=== PATIENT | female | born 1980 | race Caucasian/White ===

== ENCOUNTER 2018-05-08 10:02 | Day surgery (SDC) | payer BC ==
[2018-05-01 12:45] LABS: CLARITY,URINE SLIGHTLY CLOUDY (Clear); COLOR,URINE YELLOW (Yellow); GLUCOSE, URINE NEGATIVE (Neg); KETONES,URINE NEGATIVE (Neg); LEUKOCYTE ESTERASE ,URINE NEGATIVE (Neg); NITRITES, URINE NEGATIVE (Neg); OCCULT BLOOD,URINE NEGATIVE (Neg); PROTEIN,URINE NEGATIVE (Neg); UA COLLECTION TYPE CLN CATCH MIDSTREAM; UROBILINOGEN,URINE 0.2 E.U/dL (0.2-1.0)
[2018-05-01 12:47] LABS: BASOPHILS # (AUTO) 0.1 X10'3 (0-0.2); BASOPHILS % (AUTO) 0.6 % (0-1); EOSINOPHILS # (AUTO) 0.1 X10'3 (0-0.9); EOSINOPHILS % (AUTO) 1.3 % (0-6); LYMPHOCYTES # (AUTO) 2.4 X10'3 (1.1-4.8); LYMPHOCYTES % (AUTO) 25.1 % (21-51); MEAN CORPUSCULAR HEMOGLOBIN 29.6 PG (27.0-31.0); MEAN CORPUSCULAR HGB CONC 33.5 % (33.0-36.5); MEAN CORPUSCULAR VOLUME 88.3 FL (78-98); MEAN PLATELET VOLUME 9.7 FL (7.4-10.4); MONOCYTES # (AUTO) 0.4 X10'3 (0-0.9); MONOCYTES % (AUTO) 4.5 % (2-12); NEUTROPHILS # (AUTO) 6.5 X10'3 (1.8-7.7); NEUTROPHILS % (AUTO) 68.5 % (42-75); PRE OP HEMATOCRIT 41.7 % (35.0-45.0); PRE OP PLATELET COUNT 326 X10'3 (140-440); RED BLOOD COUNT 4.72 X10'6 (4.20-5.60); RED CELL DISTRIBUTION WIDTH 13.4 % (11.5-14.5)
[2018-05-01 12:56] LABS: BACTERIA,URINE 2+ /HPF (Neg); MUCUS STRANDS MODERATE /LPF (Neg); SQUAMOUS EPITHELIAL CELL,UR MODERATE /LPF (FEW)
[2018-05-01 12:57] LABS: WBC,URINE 0-4 /HPF (0-4)
[2018-05-01 13:02] LABS: ALBUMIN 3.9 G/DL (3.4-5.0); ALBUMIN/GLOBULIN RATIO 0.9 (1.1-1.5); ALKALINE PHOSPHATASE 107 IU/L (46-116); BLOOD UREA NITROGEN 12 MG/DL (7-18); BUN/CREATININE RATIO 11.9 (6.6-38.0); CALCIUM 9.5 MG/DL (8.5-10.1); CHLORIDE 108 MMOL/L (99-107); CREATININE 1.01 MG/DL (0.40-0.90); PRE OP ALT 22 U/L (30-65); PRE OP ANION GAP 12 (8-16); PRE OP AST 19 U/L (10-37); PRE OP BILIRUB, TOTAL 0.2 MG/DL (0.0-1.0); PRE OP GLUCOSE 92 MG/DL (70-104); PRE OP POTASSIUM 3.9 MMOL/L (3.4-5.1); PRE OP SODIUM 141 MMOL/L (135-145); TOTAL CARBON DIOXIDE 21.5 MMOL/L (24-32); TOTAL PROTEIN 8.3 G/DL (6.4-8.2); eGFR 62 ML/MIN
[2018-05-08] VITALS (8 sets, daily range): BP systolic 113–126; BP diastolic 62–82
[~2018-05-08] VITALS: Ht 165.1 cm; Wt 132.9 kg
[2018-05-08] MEDS: ceFOXitin 2 GM ADDvantage bag 100 ML IV ONE ×2 (05:00→10:44)
[~2018-05-08 10:02] MED LIST: BUPR300T54 PO; LISI10TA4 PO; OMEP20CA10 PO; TOPI25TA15 PO; famotidine 20mg tablet PO ONE; ringers solution, lacted 1,000 ML IV SCH
[2018-05-08] MEDS ORDERED: aprepitant 40mg capsule PO ONE (11:00)
[2018-05-08] MEDS ORDERED: ringers solution, lacted 1,000 ML IV SCH (11:24)
[2018-05-08] MEDS ORDERED: morphine 4 MG/ML inj SYRINge IV PRN ×2 (11:25)
[2018-05-08] MEDS ORDERED: ondansetron/PF 4mg/2ml inj IV PRN (11:25)
[2018-05-08] MEDS ORDERED: meperidine/PF 25mg/ml syringe IV PRN ×3 (11:25)
[2018-05-08] MEDS ORDERED: proCHLORperazine 10 MG/2 ml inj IV PRN (11:25)
[2018-05-08] MEDS ORDERED: midazolam 2 mg/2 ml injection ONE (12:02)
[2018-05-08] MEDS ORDERED: ondansetron/PF 4mg/2ml inj ONE (12:03)
[2018-05-08] MEDS ORDERED: sevoflurane 250ml liquid IH ONE (12:03)
[2018-05-08] MEDS ORDERED: fentaNYL/PF 50MCG/1 ML 2ML syringe ONE (12:03)
[2018-05-08] MEDS ORDERED: dexamethasone sod phosphate 10mg/ml inj ONE (12:03)
[2018-05-08] MEDS ORDERED: BUPIVAcaine/PF 7.5mg/ml (0.75%) 10ml vial ONE (12:13)
[2018-05-08] MEDS ORDERED: ROPIVAcaine 0.5% (5mg/ml) 30ml vial ONE (12:13)
[2018-05-08] MEDS ORDERED: meperidine/PF 50mg/ml syringe ONE (12:59)
[2018-05-08] MEDS ORDERED: propofol inj 20 ML IV ONE (12:59)
[2018-05-08] MEDS ORDERED: rocuronium 10mg/ml inj IV ONE (12:59)
[2018-05-08] MEDS ORDERED: LIDOcaine 2% (20mg/ml) 5ml vial ONE (12:59)
[2018-05-08] MEDS ORDERED: ketorolac trometh. 30mg/ml inj. ONE (12:59)
== END 2018-05-08 14:35 | disposition home or self-care (01) ==
LOC: PAS 10:02
PROVIDERS: ATTEND Obstetrics & Gynecology Obstetrics
DX: N83.8 Other noninflammatory disorders of ovary, fallopian tube and broad ligament (principal); N94.89 Other specified conditions associated with female genital organs and menstrual cycle; N73.6 Female pelvic peritoneal adhesions (postinfective); F41.8 Other specified anxiety disorders; M19.90 Unspecified osteoarthritis, unspecified site; I10 Essential (primary) hypertension; G47.33 Obstructive sleep apnea (adult) (pediatric); K21.9 Gastro-esophageal reflux disease without esophagitis; F32.9 Major depressive disorder, single episode, unspecified; E66.01 Morbid (severe) obesity due to excess calories; Z68.42 Body mass index [BMI] 45.0-49.9, adult; Z79.1 Long term (current) use of non-steroidal anti-inflammatories (NSAID); Z88.2 Allergy status to sulfonamides; Z79.891 Long term (current) use of opiate analgesic; Z87.891 Personal history of nicotine dependence; Z98.51 Tubal ligation status; Z90.721 Acquired absence of ovaries, unilateral; Z90.711 Acquired absence of uterus with remaining cervical stump; Z79.899 Other long term (current) drug therapy; Z98.890 Other specified postprocedural states; Z88.8 Allergy status to other drugs, medicaments and biological substances
CPT/HCPCS: 36415; 58661; 80053; 81001; 85025; J0694; J1100; J1885; J2001; J2175; J2250; J2405; J2704; J2795; J3010; J3490; J7120; A7000